=== PATIENT | female | born 1950 | race Caucasian/White ===

== ENCOUNTER → 2020-02-04 | Outpatient (CLI) | payer MEDICARE, BC ==
[2020-02-04 13:32] LABS: BLOOD UREA NITROGEN 19 MG/DL (7-18); CREATININE FOR GFR 0.68 MG/DL (0.55-1.30); GLOMERULAR FILTRATION RATE > 60.0 (>45)
== END ==
LOC: M WUC 09:31
PROVIDERS: ATTEND Urology
DX: Z01.812 Encounter for preprocedural laboratory examination (principal)

== ENCOUNTER → 2021-02-02 | Outpatient (CLI) | payer MEDICARE, BC ==
[2021-02-02 11:05] LABS: BASO % 0.7 % (0.0-1.0); EOS # 0.1 10^3/uL (0.0-0.5); EOS % 1.2 % (0.0-3.0); HEMATOCRIT 34.4 % (36.0-47.0); LYMPH # 1.8 10^3/uL (1.5-5.0); LYMPH % 42.2 % (24.0-44.0); MEAN CORPUSCULAR HEMOGLOBIN 31.9 pg (27.0-33.0); MEAN CORPUSCULAR VOLUME 99.7 fl (80.0-96.0); MONO # 0.3 10^3/uL (0.0-0.8); MONO % 7.2 % (2.0-8.0); NEUTROPHILS # 2.1 10^3/uL (1.5-8.5); NEUTROPHILS % 48.5 % (36.0-66.0); PLATELET COUNT, AUTOMATED 205 10^3/uL (150-450); RED BLOOD COUNT 3.45 10^6/uL (4.00-5.40); WHITE BLOOD COUNT 4.3 10^3/uL (4.0-10.0)
[2021-02-02 11:42] LABS: ALBUMIN 3.8 GM/DL (3.2-5.2); ALT/SGPT 21 U/L (12-78); BILIRUBIN,TOTAL 0.5 MG/DL (0.2-1.0); BLOOD UREA NITROGEN 20 MG/DL (7-18); CALCIUM LEVEL 8.9 MG/DL (8.8-10.2); CARBON DIOXIDE LEVEL 27 MEQ/L (21-32); CHLORIDE LEVEL 112 MEQ/L (98-107); CHOLESTEROL LEVEL 222 MG/DL (<200); CHOLESTEROL RISK RATIO 2.242 (<5); CREATININE FOR GFR 0.64 MG/DL (0.55-1.30); GLOMERULAR FILTRATION RATE > 60.0 (>45); GLUCOSE, FASTING 98 MG/DL (70-100); HDL CHOLESTEROL 99 MG/DL (>40); LDL CHOLESTEROL 111 MG/DL (<100); NON-HDL-C 123 MG/DL; POTASSIUM SERUM 4.6 MEQ/L (3.5-5.1); SODIUM LEVEL 143 MEQ/L (136-145); TOTAL 25(OH) VITAMIN D 31.3 NG/ML (30.0-100.0); TOTAL PROTEIN 6.6 GM/DL (6.4-8.2); TRIGLYCERIDES LEVEL 61 MG/DL (<150)
== END ==
LOC: M WUC 08:09
DX: D64.9 Anemia, unspecified (principal); Z00.00 Encounter for general adult medical examination without abnormal findings; E55.9 Vitamin D deficiency, unspecified; Z79.899 Other long term (current) drug therapy

== ENCOUNTER → 2021-05-05 | Outpatient (CLI) | payer MEDICARE, BC ==
--- NOTE | 2021-05-05 14:50 | REP ---
INDICATION: ENCTR SCREEN MAMMO FOR MALIGNANT NEOPLASM OF BREAST. COMPARISON: Multiple all from an outside institution TECHNIQUE: Digital screening mammography was carried out bilaterally in the CC and MLO projections and compared to the prior exams. By history, the patient has no complaints of a palpable breast abnormality or other significant breast complaints. There are no prior DBT images for comparison. FINDINGS: The breasts are unchanged in size and shape. The oval-shaped nodular density seen previously in the left breast near 12 o'clock appears to have increased in size and is best seen on DBT imaging. In the right breast centrally on both CC and MLO views there is a grouping of calcifications which have increased in number and may now have a variability in size, shape, and radiographic density No other suspicious features are seen in either breast. The Volpara volumetric breast density pattern is b. IMPRESSION: BIRADS/ACR category 0 mammogram. Right breast calcifications and left breast density as described above and for which diagnostic digital magnified spot compression views of the right breast recommended to better evaluate the calcifications and for which diagnostic DBT spot compression views of the left breast near 12 o'clock recommended along with left breast ultrasonography if indicated. This patient's Tyrer-Cuzick lifetime breast cancer risk assessment score is 17.3%. This mammogram was interpreted with the aid of an FDA-approved computer-aided detection system. The patient states she had a clinical breast exam in March 2021. The patient letter being requested is M0. RECOMMENDATION: As above <Electronically signed by Jarocho Ruffin > 05/05/21 [id number]
== END ==
LOC: M WHC 12:21
DX: R92.2 Inconclusive mammogram (principal); N63.21 Unspecified lump in the left breast, upper outer quadrant

== ENCOUNTER → 2021-05-16 | Outpatient (CLI) | payer MEDICARE, BC ==
--- NOTE | 2021-05-16 14:37 | REP ---
INDICATION: BILATERAL ADD VIEWS. COMPARISON: Multiple TECHNIQUE: Bilateral diagnostic digital mammography was obtained with magnified CC and MLO views of the right breast over a grouping of calcifications seen centrally and diagnostic digital DBT spot compression views of the left breast at the 12 o'clock position along with ultrasonography. FINDINGS: The diagnostic digital magnified spot compression views of the right breast show a small grouping of calcifications centrally which although faintly visible do not appear to have a significant variance in size, shape, and radiographic density and do not appear to be significantly changed compared to prior exams. Diagnostic digital DBT spot compression views of the left breast at 12 o'clock show persistence of the nodular density. Diagnostic ultrasonography of this region was obtained and shows a 2 x 0.6 x 1.5 cm sized anechoic structure which exhibits posterior wall enhancement and increased through transmission. Shear wave elastography was performed on this showing very low KPA values. IMPRESSION: BIRADS/ACR category 2 benign findings.. There is an essentially stable benign grouping of calcifications seen in the right breast as described above. There is a simple left breast cyst as described above. The patient letter being requested is M1. RECOMMENDATION: Repeat screening mammography recommended 1 year (for women over 40). <Electronically signed by Jarocho Ruffin > 05/16/21 [id number]
== END ==
LOC: M WHC 12:53
PROVIDERS: ATTEND Registered Nurse Women's Health Care, Ambulatory
DX: R92.2 Inconclusive mammogram (principal); N60.02 Solitary cyst of left breast
CPT/HCPCS: 76642; 77066; G0279

== ENCOUNTER → 2022-04-20 | Outpatient (CLI) | payer MEDICARE, BC | LOC: M WHC 12:18 | DX: Z12.31 Encounter for screening mammogram for malignant neoplasm of breast (principal) ==

== ENCOUNTER → 2022-04-20 | Outpatient (CLI) | payer MEDICARE, BC | LOC: M WHC 12:21 | PROVIDERS: ATTEND Physician Assistant | DX: Z13.820 Encounter for screening for osteoporosis (principal); Z78.0 Asymptomatic menopausal state; M85.89 Other specified disorders of bone density and structure, multiple sites ==

== ENCOUNTER → 2023-04-26 | Outpatient (CLI) | payer MEDICARE, BC | LOC: M WHC 12:35 | PROVIDERS: ATTEND Obstetrics & Gynecology | DX: Z12.31 Encounter for screening mammogram for malignant neoplasm of breast (principal) ==